=== PATIENT | male | born 1990 | race Caucasian/White ===

== ENCOUNTER 2018-08-14 16:12 | Emergency (ER) | payer MEDICAID, OTHER ==
[2018-08-14 18:31] VITALS: BP 122/95
[2018-08-14] MEDS ORDERED: NAPROXEN 250 MG TABLET PO STA (19:07)
[2018-08-14] MEDS ORDERED: AMOXICILLIN 250 MG CAPSULE PO STA (19:07)
--- NOTE | 2018-08-14 19:09 | ED Physician Documentation ---
History of Present Illness - Stated complaint Stated Complaint: TOOTH PAIN - Chief complaint Chief Complaint: General - Additonal information Additional information: 28-year-old male presents the emergency department with dental pain which has been ongoing for the past several weeks and worse in the past several days. The patient is concerned about a dental infection. The patient reports that he is unable to pay for a dentist. No fevers or chills. No facial swelling or difficulty swallowing or tongue swelling. No relieving factors. Review of Systems Constitutional: denies: Fever, Fatigue Eyes: denies: Loss of vision Ears: denies: Ear pain Nose: denies: Congestion Throat: reports: Dental pain / toothache Cardiac: denies: Chest pain / pressure Respiratory: denies: Cough Musculoskeletal: denies: Neck pain PD PAST MEDICAL HISTORY - Past Medical History Past Medical History: No Other Past Medical History: Wrist surgery. - Past Surgical History Past Surgical History: No - Present Medications Home Medications: Ambulatory Orders Medication Instructions Recorded Confirmed Amoxicillin 875 mg PO BID #20 tablet 08/14/18 Naproxen 500 mg PO BID PRN #60 tablet 08/14/18 - Allergies Allergies/Adverse Reactions: Allergies Allergy/AdvReac Type Severity Reaction Status Date / Time No Known Drug Allergies Allergy Verified 08/14/18 16:48 - Social History Does the pt smoke?: No Smoking Status: Never smoker Does the pt drink ETOH?: No Does the pt have substance abuse?: Yes Substance Use and Type: Marijuana - Immunizations Immunizations are current?: Yes PD ED PE NORMAL - General General: Alert and oriented X 3, No acute distress - HEENT HEENT: Atraumatic, PERRL, EOMI - Derm Derm: Normal color - Extremities Extremities: No deformity - Neuro Neuro: Alert and oriented X 3, Normal speech - Psych Psych: Normal affect PD ED PE EXPANDED - HEENT HEENT Visual: 1 - tenderness (The patient has tenderness to palpation, there is some gingival inflammation, no abscess, the floor the mouth is moist and soft. The tongue is within normal limits) Results - Vitals Vitals: Vital Signs - 24 hr 08/14/18 08/14/18 16:44 18:30 Temperature 37.3 C Heart Rate 95 55 L Respiratory 16 14 Rate Blood Pressure 135/81 H 122/95 H O2 Saturation 98 99 Oxygen O2 Source Room air PD MEDICAL DECISION MAKING - ED course ED course: The patient will be treated with a course of antibiotics for a presumed dental infection. The patient appears appropriate for discharge. I recommended follow-up with dental for ongoing evaluation and management. The patient will return to the emergency department for any worsening or any concerns Departure - Departure Disposition: 01 Home, Self Care Clinical Impression: Pain, dental Condition: Good Instructions: ED Tooth Pain Prescriptions: Amoxicillin 875 mg PO BID #20 tablet Naproxen 500 mg PO BID PRN #60 tablet PRN Reason: Pain Comments: Please follow-up with the dentist for further evaluation and management of your dental pain Please return to the emergency department for any worsening or any concerns
== END 2018-08-14 19:21 | disposition home or self-care (01) ==
LOC: ED 16:12
DX: K08.89 Other specified disorders of teeth and supporting structures (principal)
CPT/HCPCS: 99283; A9270